=== PATIENT | male | born 1970 | race Caucasian/White ===

== ENCOUNTER 2020-02-10 19:57 | Emergency (ER) | payer BC ==
[~2020-02-10] VITALS: Ht 175.3 cm; Wt 122.0 kg
--- NOTE | 2020-02-10 20:20 | PHYS DOC ---
Past Medical History Past Medical History: No Pertinent History Past Surgical History: Lumbar Laminectomy Smoking Status: Never Smoker General Adult EDM: Chief Complaint: NEAR SYNCOPE HPI: HPI: 49-year-old male presents with multiple episodes of dizziness today. Patient has had recurrent episodes of room spinning dizziness over the last couple months. Patient thinks it may be related to chronic lumbar pain which he had surgery on in the past. Patient states that he had episode this evening lasted 45 minutes and was associated with room spinning dizziness. Patient denies any nausea vomiting but has had some tinnitus over the last 2 months. Patient denies any fevers chills cough vomiting diarrhea chest pain or shortness of br eath. Patient denies any focal weakness. Review of Systems: Review of Systems: Constitutional: Denies fever or chills. [] Eyes: Denies change in visual acuity. [] HENT: Denies nasal congestion or sore throat. [] Respiratory: Denies cough or shortness of breath. [] Cardiovascular: Denies chest pain or edema. [] GI: Denies abdominal pain, nausea, vomiting, bloody stools or diarrhea. [] : Denies dysuria. [] Musculoskeletal: Complains of chronic lumbar pain Integument: Denies rash. [] Neurologic: Denies headache, focal weakness or sensory changes. Complains of lightheaded dizziness Endocrine: Denies polyuria or polydipsia. [] Lymphatic: Denies swollen glands. [] Psychiatric: Denies depression or anxiety. [] Heart Score: Risk Factors: Risk Factors: DM, Current or recent (<one month) smoker, HTN, HLP, family history of CAD, obesity. Risk Scores: Score 0 - 3: 2.5% MACE over next 6 weeks - Discharge Home Score 4 - 6: 20.3% MACE over next 6 weeks - Admit for Clinical Observation Score 7 - 10: 72.7% MACE over next 6 weeks - Early Invasive Strategies Physical Exam: PE: Constitutional: Well developed, well nourished, no acute distress, non-toxic appearance. [] HENT: Normocephalic, atraumatic, bilateral external ears normal, oropharynx moist, no oral exudates, nose normal. [] Eyes: PERRLA, EOMI, conjunctiva normal, no discharge. [] Neck: Normal range of motion, no tenderness, supple, no stridor. [] Cardiovascular:Heart rate regular rhythm, Lungs & Thorax: No respiratory distress Abdomen: soft, no tenderness, no masses, no pulsatile masses. [] Skin: Warm, dry, no erythema, no rash. [] Back: No tenderness, no CVA tenderness. [] Extremities: No tenderness, no cyanosis, no clubbing, ROM intact, no edema. [] Neurologic: Alert and oriented X 3, normal motor function, normal sensory function, no focal deficits noted. [] Cerebellar exam normal Psychologic: Affect normal, judgement normal, mood normal. [] Current Patient Data: Labs: Laboratory Tests Test 02/10/20 20:58 White Blood Count 14.5 x10^3/uL Red Blood Count 5.47 x10^6/uL Hemoglobin 16.6 g/dL Hematocrit 47.5 % Mean Corpuscular Volume 87 fL Mean Corpuscular Hemoglobin 30 pg Mean Corpuscular Hemoglobin Concent 35 g/dL Red Cell Distribution Width 14.3 % Platelet Count 232 x10^3/uL Neutrophils (%) (Auto) 83 % Lymphocytes (%) (Auto) 11 % Monocytes (%) (Auto) 6 % Eosinophils (%) (Auto) 0 % Basophils (%) (Auto) 1 % Neutrophils # (Auto) 12.0 x10^3/uL Lymphocytes # (Auto) 1.6 x10^3/uL Monocytes # (Auto) 0.8 x10^3/uL Eosinophils # (Auto) 0.0 x10^3/uL Basophils # (Auto) 0.1 x10^3/uL Sodium Level 139 mmol/L Potassium Level 3.7 mmol/L Chloride Level 104 mmol/L Carbon Dioxide Level 23 mmol/L Anion Gap 12 Blood Urea Nitrogen 16 mg/dL Creatinine 1.2 mg/dL Estimated GFR (Cockcroft-Gault) 64.9 BUN/Creatinine Ratio 13 Glucose Level 124 mg/dL Calcium Level 9.2 mg/dL Total Bilirubin 0.4 mg/dL Aspartate Amino Transf (AST/SGOT) 27 U/L Alanine Aminotransferase (ALT/SGPT) 53 U/L Alkaline Phosphatase 89 U/L Total Protein 8.4 g/dL Albumin 3.8 g/dL Albumin/Globulin Ratio 0.8 Current Medications Medications (Trade) Dose Ordered Sig/Paulette Route PRN Reason Start Time Stop Time Status Last Admin Dose Admin Meclizine HCl (Antivert) 25 mg 1X ONCE PO 02/10/20 21:00 02/10/20 21:01 DC 02/10/20 20:57 EKG: EKG: [] Normal sinus rhythm with a rate of 99 normal axis normal intervals normal ST segments Radiology/Procedures: Radiology/Procedures: [] Course & Med Decision Making: Course & Med Decision Making Pertinent Labs and Imaging studies reviewed. (See chart for details) [10:20 patient is alert, no more dizzy spells. Patient had a CT of the head without last month. Patient's cerebellar exam is normal. Rest of his neurological exam is normal. I doubt he is having a stroke. Most likely the patient has lab otitis or inner ear problems. Patient will be started on steroids and has been told to stop his anti-inflammatories and will take meclizine as well. Patient will follow-up with ear nose and throat doctor.] Belén Disclaimer: Belén Disclaimer: This electronic medical record was generated, in whole or in part, using a voice recognition dictation system. Departure Departure Impression: Primary Impression: Dizziness Disposition: 01 HOME, SELF-CARE Condition: STABLE Referrals: [facility] 2-3 DAYS Patient Instructions: Dizziness, Vertigo Additional Instructions: EMERGENCY DEPARTMENT GENERAL DISCHARGE INSTRUCTIONS Thank you for coming to [facility] Emergency Department (ED) today and trusting us with you care. We trust that you had a positivie experience in our Emergency Department. If you wish to speak to the department management, you may call the sirector at [phone]. YOUR FOLLOW UP INSTRUCTIONS ARE FOLLOWS: 1. Do you have a private Doctor? If you do not have a private doctir, please ask for a resource list of physicians or clinics that may be able to assist you with follow up care. 2. The Emergency Physicain has interpreted your x-rays. The X-Ray specialist will also review them. If there is a change in the findingd, you will be notified in 48 hours when at all possible. 3. A lab test or culture has been done, your results will be reviewed and you will be notified if you need a change in treatment. ADDITIONAL INSTRUCTIONS AND INFORMATION: 1. Your care today has been supervised by a physician who is specially trained in emergency care. Many problems require more than one evaluation for a complete diagnosis and treatment. We recommend that you schedule your follow up appointment as recommended to ensure complete treatment of you illness or injury. If you are unable to obtain follow up care and continue to have a problem, or if your consition worsens, we recommend that you return to the ED. 2. We are not able to safelymdetermine your condition over the phone nor are we able to give sound medical advice over the phone. For these safety reasons, if you call for medical advice we will ask you to come to the ED for further evaluation. 3. If you have any questions regarding these discharge instructions please call the ED at [phone]. SAFETY INFORMATION: In the interest of safety, wellness, and injury prevention; we encourage you to wear your sealbelt, if you smoke; quite smoking, and we encourage family to use a protective helmet for bicycling and other sporting events that present an increased risk for head injusry. IF YOUR SYMPTOMS WORSEN OR NEW SYMPTOMS DEVELOP, OR YOU HAVE CONCERNS ABOUT YOUR CONDITION; OR IF YOUR CONDITION WORSENS WHILE YOU ARE WAITING FOR YOUR FOLLOW UP APPOINTMENT; EITHER CONTACT YOUR PRIMARY CARE DOCTOR, THE PHYSICIAN WHOSE NAME AND NUMBER YOU WERE GIVEN, OR RETURN TO THE ED IMMEDIATELY. STOP CELEBREX WHILE TAKING PREDNISONE Scripts Prednisone (PREDNISONE) 20 Mg Tablet 3 TAB PO DAILY for 7 Days, #21 TAB Prov: JENNIFER MORALES MD 02/10/20 Meclizine Hcl (MECLIZINE HCL) 25 Mg Tablet 1 TAB PO PRN TID PRN for DIZZINESS, #30 TAB Prov: JENNIFER MORALES MD 02/10/20 Justicifation of Admission Dx: Justifications for Admission: Justification of Admission Dx: N/A JENNIFER MORALES MD Feb 10, 2020 20:20
[2020-02-10] MEDS ORDERED: MECLIZINE HCL 12.5 MG TABLET. PO ONE (21:00)
[2020-02-10 21:11] LABS: BASO # 0.1 x10^3/uL (0.0-0.2); BASO % 1 % (0-3); EOS % 0 % (0-3); HEMATOCRIT 47.5 % (39.0-53.0); HEMOGLOBIN 16.6 g/dL (13.0-17.5); LYMPH # 1.6 x10^3/uL (1.0-4.8); LYMPH % 11 % (24-48); MEAN CORPUSCULAR HEMOGLOBIN 30 pg (25-35); MEAN CORPUSCULAR HGB CONC 35 g/dL (31-37); MEAN CORPUSCULAR VOLUME 87 fL (79-100); MONO # 0.8 x10^3/uL (0.0-1.1); MONO % 6 % (0-9); NEUT % 83 % (31-73); PLATELET COUNT 232 x10^3/uL (140-400); RED BLOOD COUNT 5.47 x10^6/uL (4.30-5.70); RED CELL DISTRIBUTION WIDTH 14.3 % (11.5-14.5); WHITE BLOOD COUNT 14.5 x10^3/uL (4.0-11.0)
[2020-02-10 21:19] LABS: CALCIUM 9.2 mg/dL (8.5-10.1); CREATININE 1.2 mg/dL (0.7-1.3); GFR 64.9; POTASSIUM 3.7 mmol/L (3.5-5.1)
[2020-02-10 21:28] VITALS: BP 131/68
[2020-02-10 21:31] LABS: ALBUMIN 3.8 g/dL (3.4-5.0); ALBUMIN/GLOBULIN RATIO 0.8 (1.0-1.7); TOTAL BILIRUBIN 0.4 mg/dL (0.2-1.0); TOTAL PROTEIN 8.4 g/dL (6.4-8.2)
[2020-02-10] MEDS ORDERED: PRED20TA PO (22:28)
[2020-02-10] MEDS ORDERED: MECL-75 PO (22:28)
--- NOTE | 2020-02-11 11:55 | EKG ---
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
== END 2020-02-10 22:46 | disposition home or self-care (01) ==
LOC: ER 19:57
DX: R42 Dizziness and giddiness (principal); M54.5 Low back pain; Z90.89 Acquired absence of other organs
CPT/HCPCS: 36415; 80053; 85025; 93005; 99284; J8597